=== PATIENT | female | born 1995 | race Caucasian/White ===

== ENCOUNTER 2025-06-29 12:24 | Inpatient (IN) | payer OTHER, SELFPAY ==
[2025-06-29] VITALS (15 sets, daily range): BP systolic 127–153; BP diastolic 70–91; PULSE 72–97; RESP 18–20; TEMP 36.6–37.1; O2SAT 97–98; BMI 43.7
[2025-06-29 13:30] LABS: Hematocrit 34.1 % (33.0-51.0); Hemoglobin* 11.5 gm/dL (12.0-16.0); Immature Granulocytes Pct Auto 1.8 %; Mean Corpuscular HGB Conc 34 gm/dL (32-36); Mean Corpuscular Hemoglobin 30 pg (26-34); Mean Corpuscular Volume 87 fL (80-100); RDW Coefficient of Variation % 13.9 % (11.5-15.5); Red Blood Count 3.90 m/uL (4.00-5.20); White Blood Count* 11.51 K/uL (4.50-11.00)
[2025-06-29 13:34] LABS: Immature Granulocytes Abs Auto 0.20 K/uL (0.00-0.30); Lymphocytes Absolute Auto 2.10 K/uL (0.90-2.90); Slide Review Reflex No
--- NOTE | 2025-06-29 19:50 | PM.OBHPLI ---
OB - H&P: HPI Labor/Induction History of Present Illness Date Seen: 06/29/25 Chief Complaint: The patient is a 30 year old 1 para 0 at 40+5 weeks gestation by LMP and confirmed with 1st trimester US, who presents for IOL for post-dates. Chief complaint: Induction : 1 Para: 0 Narrative: Shawnee Hubbard is a 30 year old at 40+5 weeks by LMP and confirmed with 1st trimester US here for IOL for post dates. has been uncomplicated. She reports no contractions, no LOF. Baby is active. This morning, cervix 1 cm external os, unable to reach internal os, she was started on vaginal cytotec this afternoon and is now 1.5/50/-4 per RN. Contractions are picking up on monitor, but patient denies feeling them. History of Present Dating criteria: based on LMP care: good care Ultrasounds: normal 1st trimester US and normal mid trimester US Abnormal ultrasound findings: EFW 3266g at 38 weeks (53%) Medical complications: none Labs Blood type: O (+) positive Rubella: immune RPR/VDLR: nonreactive GBS status: positive HBsAG: negative Review of Systems Status of ROS: Reports: 6 or more systems reviewed and unremarkable except as noted in History and below Meds Home Medications and Allergies Home Medications ?Medication ?Instructions ?Recorded ?Confirmed ?Type cetirizine 10 mg tablet (24Hour 10 mg PO DAILY PRN 06/29/25 06/29/25 History Allergy) dextroamphetamine-amphetamine ER 1 cap PO QAM 06/29/25 06/29/25 History 25 mg 24hr capsule,extend release vit no.95-ferrous 1 tab PO DAILY 06/29/25 06/29/25 History fumarate 28 mg-folic acid 800 mcg tablet () sertraline 50 mg tablet 50 mg PO DAILY 06/29/25 06/29/25 History Allergies Allergy/AdvReac Type Severity Reaction Status Date / Time No Known Drug Allergies Allergy Verified 06/29/25 13:08 OB - H&P: Exam Physical Exam: Vital signs: Temp Pulse Resp BP Pulse Ox 98 F 72 20 127/88 98 06/29/25 18:57 06/29/25 19:06 06/29/25 18:57 06/29/25 19:06 06/29/25 18:57 Constitutional: Constitutional: no acute distress Routine HEENT Exam: Eye: Present EOMI and normal appearance ENT: Present mucous membranes moist Routine Neck Exam: Neck: Present full ROM Routine Respiratory Exam: Respiratory: Present CTA bilaterally Routine Cardiovascular Exam: Cardiovascular: RRR Detailed Labor and Delivery Exam: Patient Gravid: yes Dilation (cm): 2 Effacement (%): 50 Cervix position: mid Consistency: soft Contraction intensity: Mild Fetus (Single): Station: -4 Amniotic Membrane Status: intact Heart Rate Baseline: 140 Monitor Accelerations: Present Monitor Decelerations: None Fire Alarm Dispatcher Variability: Moderate (6-25) Routine Extremities Exam: Extremities: Present pedal edema (+2) Routine Skin Exam: Present intact Routine Neurological Exam: Present alert, oriented X3 and CN II-XII intact OB - Results Labs Labs: Short CBC 06/29/25 Range/Units 12:52 WBC 11.51 H (4.50-11.00) K/uL Hgb 11.5 L (12.0-16.0) gm/dL Hct 34.1 (33.0-51.0) % Plt Count 249 (140-440) K/uL OB - Problem Based A/P Additional Plan (1) Post term over 40 weeks: Status: Acute Plan Patient is tolerating cytotec well and is having good cervical change. Will continue for a total of 5 doses if needed and then transition to pitocin in AM Abx for +GBS once pitocin started, patient tolerates cephalosporins. Epidural per patient request. Delivery/Labor/Induction Plan Plan: induction Induction method: per misoprostol protocol
[2025-06-29] MEDS: LACTATED RINGERS 1000 ML 1,000 ML 125 ML IV (22:20)
[2025-06-29] MEDS: CEFAZOLIN 2 GM in 0.9 % SODIUM CHLORIDE Mini-bag 100 ML IVPB (22:21)
[2025-06-29] MEDS: ONDANSETRON 2 MG/ML inj 4 MG IV (23:27)
[2025-06-30] VITALS (189 sets, daily range): BP systolic 75–154; BP diastolic 42–88; PULSE 67–128; RESP 16–20; TEMP 36.5–37.1; O2SAT 82–100
[2025-06-30] MEDS: LIDOCAINE 2% (PF) 5 ML VIAL EPIDURAL (01:38)
[2025-06-30] MEDS: ROPIVACAINE 0.2% 100 ml 100 ML 12 MG EPIDURAL ×3 (01:38→15:43)
--- NOTE | 2025-06-30 01:40 | PM.ANBPRC ---
PFSH PFSH Social History What is your current living situation?: I presently have a place to live Problems where you live: no known problems In the past 12 months, utilities in danger of being shut off: no In past 12 months, lack of transportation kept you from medical appts, meetings, work, or getting things needed for daily living: no In the past 12 mos, have been you worried that your food would run out before you had money to buy more?: never true In the past 12 mos, the food you bought just didn't last and you didn't have money to buy more?: never true Smoking Status: Never smoker How often does anyone, including family, friends and others, physically hurt you: never How often does anyone, including family, friends and others, insult or talk down to you: never How often does anyone, including family, friends and others, threaten you with harm: never How often does anyone, including family, friends and others, scream or curse at you: never Meds Home Medications and Allergies Home Medications ?Medication ?Instructions ?Recorded ?Confirmed ?Type cetirizine 10 mg tablet (24Hour 10 mg PO DAILY PRN 06/29/25 06/29/25 History Allergy) dextroamphetamine-amphetamine ER 1 cap PO QAM 06/29/25 06/29/25 History 25 mg 24hr capsule,extend release vit no.95-ferrous 1 tab PO DAILY 06/29/25 06/29/25 History fumarate 28 mg-folic acid 800 mcg tablet () sertraline 50 mg tablet 50 mg PO DAILY 06/29/25 06/29/25 History Allergies Allergy/AdvReac Type Severity Reaction Status Date / Time No Known Drug Allergies Allergy Verified 06/29/25 13:08 Results Labs Labs: Laboratory Results - last 24 hr 06/29/25 12:52 WBC 11.51 H RBC 3.90 L Hgb 11.5 L Hct 34.1 MCV 87 MCH 30 MCHC 34 RDW Coeff of [place] 13.9 Plt Count 249 Neut % (Auto) 71.1 Lymph % (Auto) 18.5 L Ballard % (Auto) 7.6 Eos % (Auto) 0.9 Baso % (Auto) 0.1 Neut # (Auto) 8.20 H Lymph # (Auto) 2.10 Ballard # (Auto) 0.90 Eos # (Auto) 0.10 Baso # (Auto) 0.00 Abs Immat Gran (auto) 0.20 Imm/Tot Granulo (auto) 1.8 Blood Type O Positive Antibody Screen NEGATIVE Vital Signs Vital Signs: Last Vital Signs Temp 97.7 F 06/30/25 00:21 Pulse 95 06/30/25 01:40 Resp 20 06/29/25 23:07 BP 113/69 06/30/25 01:40 Pulse Ox 98 06/30/25 01:36 Weight: 113.761 kg Height: 161.29 cm Anesthesia Procedures Epidural Insertion Patient Location: OB Start Time: :00 Stop Time: 01:45 Start Date: 06/30/25 Stop Date: 06/30/25 Reason for Block: primary anesthetic Patient Position: sitting Performed By: Velasquez Patel Preanesthetic Checklist: IV checked, risks and benefits discussed, surgical consent, monitors and equipment checked, pre-op evaluation, timeout performed and anesthesia consent Prep: chlorhexidine gluconate Monitoring: blood pressure monitoring, registered nurse cardiac, continuous pulse oximetry and heart rate Approach: midline Vertebral Space: lumbar (1-5) Needle Type: Tuohy needle Injection Technique: continuous catheter (catheter) Needle gauge: 17 Needle Length (cm): 10 cm Needle Insertion Depth (cm): 7 Catheter Gauge: 19 Catheter Type: multi-orifice Catheter at skin depth (cm): 12 Test Dose Result: negative and lidocaine 1.5% with epinephrine 1 to 200,000
[2025-06-30] MEDS: PHENYLEPHRINE 100 MCG/ML SYRINGE IVP ×4 (01:46→15:49)
[2025-06-30] MEDS: LACTATED RINGERS 1000 ML 1,000 ML IV (01:56)
[2025-06-30] MEDS: ePHEDrine sulfate 5 MG/ML inj 10 MG IVP (02:34)
--- NOTE | 2025-06-30 02:53 | PM.OBPNL ---
Subjective Date Seen: 06/30/25 Narrative: Shawnee is a 30 you at 40+6 weeks who presented yesterday afternoon for IOL for post-dates. She received 3 doses of cytotec and had SROM of clear fluid a 2140. Contractions then became stronger, ultimately she requred an epidural around 0130. Nursing had difficulty tracing FHTs during epidural, and maternal BP dropped after placement, prolonged decelerations into the 80s were seen and continued despite position changes. MD called to bedside, patient's BP had improved by arrival and FHTs reassuring. Patient is now resting comfortable. Objective Vital Signs: Last Vital Signs Temp 97.7 F 06/30/25 00:21 Pulse 106 H 06/30/25 02:48 Resp 20 06/29/25 23:07 BP 130/73 06/30/25 02:48 Pulse Ox 92 06/30/25 02:49 Pelvic Exam Dilation (cm): 4 Effacement (%): 100 Station: -2 Contractions Monitor mode: External Contraction intensity: Strong/Firm Assessment Assessment: induction ongoing Station: -2 Amniotic Membrane Status: SROM (clear) Status: Category ll Heart Rate Baseline: 140 Supervisor Blasting Variability: Moderate (6-25) Monitor Accelerations: Absent Monitor Decelerations: Variable Plan Plan: Patient comfortable with epidural and making cervical change, will continue expectant management. If contractions space out or lack of cervical change, will start pitocin. Continue antibiotics for + GBS.
[2025-06-30] MEDS: OXYTOCIN 30 unit/500 ML in NS 30 UNIT/500 ML BAG IVPB (05:23)
[2025-06-30] MEDS: CEFAZOLIN 1 GM in 0.9 % SODIUM CHLORIDE Mini-bag 100 ML IVPB ×2 (06:20→15:23)
[2025-06-30] MEDS: LACTATED RINGERS 1000 ML 1,000 ML 125 ML IV ×2 (09:23→13:56)
--- NOTE | 2025-06-30 09:37 | PM.OBPNL ---
Subjective Date Seen: 06/30/25 Narrative: Rita is a 30 yo G1 at 40+6 weeks here for IOL due to post dates. provider called urgently to bedside due to persistent deceleration to 70-80 unresponsive to position changes and pitocin turned off. By arrival, FHTs recovered and scalp electrode placed by in-house MD. Patient on hands and knees, tolerating this position well and feeling intermittent pressure with contractions. Per provider who placed FSE, patient has only an anterior rim of cervix, but may be positioned OP. Objective Vital Signs: Last Vital Signs Temp 98.5 F 06/30/25 06:37 Pulse 99 06/30/25 09:35 Resp 16 06/30/25 06:37 BP 124/72 06/30/25 09:35 Pulse Ox 100 06/30/25 09:11 Pelvic Exam Dilation (cm): 9 Effacement (%): 100 Station: -2 Contractions Monitor mode: External Contraction Frequency: 3-4 Contraction pattern: Regular Contraction intensity: Strong/Firm Pitocin Rate (mU/min): 0 Assessment Station: -2 Amniotic Membrane Status: SROM (clear) Status: Category ll Heart Rate Baseline: 140 Critical Power Install Technician Variability: Moderate (6-25) Monitor Accelerations: Present Monitor Decelerations: None Plan Plan: Pitocin off now, FHTs recovered, will try repositioning again and may need to restart pitocin if contractions space out during pushing.
--- NOTE | 2025-06-30 13:41 | PM.OBPNL ---
Subjective Date Seen: 06/30/25 Narrative: Shawnee is a 30 yo at 40+6 here for IOL. Patient is now complete and pushing, making slow progress. Epidural still working well. Objective Vital Signs: Last Vital Signs Temp 98.3 F 06/30/25 11:06 Pulse 100 06/30/25 13:35 Resp 16 06/30/25 11:06 BP 137/77 06/30/25 13:35 Pulse Ox 98 06/30/25 13:23 Pelvic Exam Dilation (cm): 10 Effacement (%): 100 Station: -2 Contractions Monitor mode: External Contraction pattern: Regular Contraction intensity: Strong/Firm Pitocin Rate (mU/min): 3 Assessment Assessment: active labor Station: -2 Amniotic Membrane Status: SROM (clear) Status: Category ll Heart Rate Baseline: 130 Snf Variability: Moderate (6-25) Monitor Accelerations: Present Monitor Decelerations: Variable Plan Plan: Continue current plan.
[2025-06-30] MEDS: ONDANSETRON 2 MG/ML inj 4 MG IV ×2 (14:04→18:59)
--- NOTE | 2025-06-30 16:01 | PM.OBCN1 ---
OB - CN: HPI Date of Consult Time Seen by Provider: 16:02 Date Seen: 06/30/25 Consult date: 06/30/25 Requesting Physician: Marisa Mitchell MD Primary Care Provider: Marisa Mitchell MD Consult Narrative Reason for consult: arrest of labor and malpresentation Narrative: Shawnee is a 30 year old G 1 P 0 at 41 and 6/7 weeks gestation that was admitted to the Center on 06/29/25 for cervical ripening followed by induction of labor. She received 3 doses of Cytotec then had spontaneous rupture of membranes and was started on Pitocin on the morning of 06/30/2025. She progressed to complete dilation at at approximately 1:05 p.m.. She started pushing at approximately 1:15 p.m. she has had good effort with pushing but has become exhausted. I was asked to evaluate the patient for a possible vacuum assisted vaginal delivery versus primary for arrest of descent. Please see Dr. Justice hers admission history and physical note for complete history. History of Present Dating criteria: based on LMP care: good care Ultrasounds: normal 1st trimester US and normal mid trimester US History History 1 Elective abortions Para 0 Spontaneous abortions Hx # Term Pregnancies Ectopic pregnancies Hx # Pregnancies Multiple births Number of Living Children 0 Labs Blood type: O (+) positive Rubella: immune RPR/VDLR: nonreactive GBS status: positive HBsAG: negative OB Labs: Lab Assessment Start: 06/29/25 12:39 Freq: ONCE Status: Complete Protocol: PC.OBGBS Activity Type Activity Date Activity User E-sign Co-sign Detail Recorded Client Recorded Date Recorded By Document 06/29/25 12:39 BRM No Response 06/29/25 13:05 BRM 06/29/25 12:39 Lab Assessment GBS Status positive GBS Additional Criteria None Susceptibility Studies Available? Clindamycin Susceptible GBS Treatment Required OK Are Labs Available Yes Maternal Blood Type O Maternal RH Factor Positive Evaluate Maternal Rubella Immune Status Immune Hepatitis B Surface Antigen Negative Maternal HIV Status Negative Maternal Syphillis (RPR) Status Negative PFSH PFSH Surgical History (Updated 06/30/25 @ 16:08 by Krystal Kern MD) Status post primary low transverse section (06/30/25) ?Z98.891 - History of uterine scar from previous surgery (ICD-10) Social History What is your current living situation?: I presently have a place to live Problems where you live: no known problems In the past 12 months, utilities in danger of being shut off: no In past 12 months, lack of transportation kept you from medical appts, meetings, work, or getting things needed for daily living: no In the past 12 mos, have been you worried that your food would run out before you had money to buy more?: never true In the past 12 mos, the food you bought just didn't last and you didn't have money to buy more?: never true Smoking Status: Never smoker How often does anyone, including family, friends and others, physically hurt you: never How often does anyone, including family, friends and others, insult or talk down to you: never How often does anyone, including family, friends and others, threaten you with harm: never How often does anyone, including family, friends and others, scream or curse at you: never Meds Home Medications and Allergies Home Medications ?Medication ?Instructions ?Recorded ?Confirmed ?Type cetirizine 10 mg tablet (24Hour 10 mg PO DAILY PRN 06/29/25 06/29/25 History Allergy) dextroamphetamine-amphetamine ER 1 cap PO QAM 06/29/25 06/29/25 History 25 mg 24hr capsule,extend release vit no.95-ferrous 1 tab PO DAILY 06/29/25 06/29/25 History fumarate 28 mg-folic acid 800 mcg tablet () sertraline 50 mg tablet 50 mg PO DAILY 06/29/25 06/29/25 History Allergies Allergy/AdvReac Type Severity Reaction Status Date / Time No Known Drug Allergies Allergy Verified 06/29/25 13:08 OB - H&P: Exam Physical Exam: Vital signs: Temp Pulse Resp BP Pulse Ox 98.3 F 100 16 128/70 100 06/30/25 15:35 06/30/25 15:50 06/30/25 15:35 06/30/25 15:50 06/30/25 15:07 Narrative: General: Pleasant, , fatigued woman in no acute distress. Vital signs: Please see the patient's electronic medical record. scalp electrode: Baseline: 110s, moderate variability intermittent variable/early decelerations with contractions/pushing. Culver: Q 4-6 minute SVE: Complete, caput is +2 to +3, one suture is palpable and feels c/w LOT presentation w/vertex at 0 to +1 station OB - CN: A/P Assessment and Plan (1) Post term over 40 weeks: Status: Acute (2) Arrest of descent, delivered, current hospitalization: Status: Acute Assessment and Plan: 1. Arrest of descent, suspect L OT presentation. 2. Recommended primary low-transverse section. 3. Consent form for reviewed and signed. The patient's questions were answered. 4. Dr. Mitchell is aware and she will be the pediatric physician for the baby. (3) Status post primary low transverse section: Problem details: Female Status: Acute Total Time Spent Total time spent: 40 minutes
[2025-06-30] MEDS: AZITHROMYCIN 500 MG in 0.9 % SODIUM CHLORIDE 250 ml 250 ML 255 MG IVPB (16:02)
--- NOTE | 2025-06-30 16:02 | PM.OBPNL ---
Subjective Date Seen: 06/30/25 Narrative: Shawnee is a 30 yo at 40+6 weeks who presented yesterday afternoon for IOL for post-dates. She progressed to complete at 1305, and was pushing effectively however no longer making progress. Patient is exhausted. OB consulted to determine if vaccuum assisted delivery would be feasible or if primary is recommended for failure to descend. Objective Vital Signs: Last Vital Signs Temp 98.3 F 06/30/25 15:35 Pulse 100 06/30/25 15:50 Resp 16 06/30/25 15:35 BP 128/70 06/30/25 15:50 Pulse Ox 100 06/30/25 15:07 Pelvic Exam Dilation (cm): 10 Effacement (%): 100 Station: +1 Contractions Monitor mode: External Contraction pattern: Regular Contraction intensity: Strong/Firm Pitocin Rate (mU/min): 3 Assessment Assessment: active labor Station: -2 Amniotic Membrane Status: SROM Status: Category ll Heart Rate Baseline: 125 High School Music Director Variability: Moderate (6-25) Monitor Accelerations: Absent Monitor Decelerations: Variable Plan Plan: inspector and clipper consult. Given lack of descent with effective pushing and suspected transverse positioning, proceeding with .
--- NOTE | 2025-06-30 17:31 | SUR.OPER ---
surgeon declines sending placenta at this time; witnessed per security systems administrator and animal ride attendant
[2025-06-30] MEDS: TRANEXAMIC ACID 100 MG/ML INJ 1000 MG IV (17:40)
--- NOTE | 2025-06-30 18:09 | SUR.OPER ---
surgeon confirms NOT sending placenta; witnessed by occupational health nurse supervisor
--- NOTE | 2025-06-30 18:38 | P.PCN_ITS ---
Procedure Note Time Seen by Provider: 18:38 Date Seen: 06/30/25 Date of procedure: 06/30/25 Will [facility] bill your pro fee for this procedure?: Yes Procedure: Preoperative diagnosis: Shawnee is a 30-year-old 1 para 0 at 40 and 6/7 weeks, arrest of descent, suspected occiput transverse presentation Postoperative diagnosis: Same, LOT presentation, hemorrhage due to uterine atony Procedure: Primary low-transverse section Anesthesia: Epidural Surgeon: Krystal Kern MD Laundromat Worker: Not applicable Quantitative blood loss: 1495 mL IV Fluid: 1500 mL UOP: 150 mL, clear urine at the end of the procedure Specimen: None Drain(s): Almaguer to gravity, Bakri uterine tamponade device with 200mL to gravity Findings: A live female was delivered from the LOT position at 5:36 p.m. Apgars were 8 at 1 min and 9 at 5 min, respectively. weight: 8 lb 4 oz. Nuchal cord(s): No. The placenta was delivered spontaneously and complete at 5:38 p.m.. Amniotic fluid: Light meconium-stained. Normal uterus, fallopian tubes and ovaries were noted. Other findings: Significant uterine atony after delivery of the placenta. Procedure: Shawnee was taken to the OR where epidural anesthetic was found be adequate. A Almaguer catheter was placed. The patient was then placed in the dorsal supine position with a leftward tilt and a Traxi, pannus retractor was applied. She was then prepped and draped in a normal sterile manner. A Pfannenstiel skin incision was made and carried through sharply to the underlying layer of fascia. Fascia was incised in the midline and this incision carried laterally with Jewell scissors. The superior aspect of fascial incision was grasped with Gonzales clamps, tented up, and the rectus muscles dissected off with a combination of blunt and sharp dissection. The inferior aspect of the fascial incision was grasped with Gonzales clamps, tented up and again the rectus muscles dissected off with a combination of blunt and sharp dissection. The rectus muscles were in the midline. The peritoneum was entered bluntly. This opening was extended bluntly. An Robin-O self-retaining retractor was placed. A bladder flap was not created. Uterus was incised in a low transverse manner in the midline. This incision carried laterally with blunt pressure on the inferior and superior aspects of the uterine incision. The amniotic sac was ruptured. The infant's head and body was delivered atraumatically. The infant was shown to the patient and her support person and then handed to waiting pediatric and nursing staff. The placenta was delivered spontaneously. The uterus was cleared of clots and debris. There was significant uterine atony after delivery of the placenta. Patient received 40 units Pitocin in 1 L IV fluid wide open, Methergine 0.2 mg IM x1 and TXA 1 g IV then a Bakri balloon was placed with 300 mL of saline but was noted to be pushed out of the uterus so a new Bakri balloon was placed with 200 mL of saline which worked well for uterine tamponade. The uterine incision was re-approximated with the uterus in vivo. The 1st layer using 0-Vicryl in a running, locked manner. The 2nd layer using 0-Monocryl in a running, vertical, imbricating layer. Additional sutures needed for hemostasis: No. Excellent hemostasis was verified. The Robin retractor was removed. The peritoneum was reapproximated using 2-0 Vicryl in a running manner. The rectus muscles were not reapproximated. The rectus muscles were then closely inspected to verify hemostasis. Hemostasis was obtained with bipolar cautery. The fascia was then re-approximated using 0-Maxon loop in a running manner. The subcutaneous tissue was then irrigated with saline and hemostasis obtained with bipolar cautery. The subcutaneous tissue was re-approximated using 3-0 plain gut in a running manner. The skin was reapproximated using 4-0 Monocryl in a running subcuticular manner. A silver-containing, Mepiplex dressing was applied. The patient tolerated this procedure well. Sponge, lap and instrument counts were correct x2 active to the procedure. Patient was taken to the recovery area in stable condition. The patient received 3g of IV Ancef and 500mg of IV azithromycin prior to skin incision. Anesthesia: regional Estimated blood loss (mL): 1,495 IV fluids (mL): 1,500 Urine output (mL): 150 Pathology: none sent Condition: stable Disposition: floor
--- NOTE | 2025-06-30 18:57 | P.ANES_ITS ---
Anesthesia Charges Start Date/Time Anesthesia Start Date: 06/30/25 Anesthesia Start Time: 17:04 Stop Date/Time Anesthesia Stop Date: 06/30/25 Anesthesia Stop Time: 18:48 Summary Emergency: REGIONAL PROPERTY MANAGER Coding CPT Codes CPT Codes: ANES/ANALG CS DELIVER ADD-ON - 44522 ([id number]) P3 - PATIENT W/SEVERE SYS DISEASE, QK - POWER SYSTEM DISPATCHER 2-4 CNCRNT ANES PROC, QX - REGIONAL PROPERTY MANAGER SVC W/ MD MED DIRECTION Additional Codes: Summary - Emergency: REGIONAL PROPERTY MANAGER ([id number])
--- NOTE | 2025-06-30 18:57 | W.ANESCHARGE ---
Anesthesia Charges Start Date/Time Anesthesia Start Date: 06/30/25 Anesthesia Start Time: 17:04 Stop Date/Time Anesthesia Stop Date: 06/30/25 Anesthesia Stop Time: 18:48 Summary Emergency: UKRAINIAN FOLK ARTS INSTRUCTOR Coding CPT Codes CPT Codes: ANES/ANALG CS DELIVER ADD-ON - 85738 ([id number]) P3 - PATIENT W/SEVERE SYS DISEASE, QK - SOAP SLABBER 2-4 CNCRNT ANES PROC, QX - UKRAINIAN FOLK ARTS INSTRUCTOR SVC W/ MD MED DIRECTION Additional Codes: Summary - Emergency: UKRAINIAN FOLK ARTS INSTRUCTOR ([id number])
--- NOTE | 2025-06-30 19:02 | P.NB_ITS ---
Nerve Block Nerve Block Time Seen by Provider: 18:42 Date Seen: 06/30/25 Type of block requested by surgeon for post-operative analgesia: TAP Side: bilateral Time out performed: Yes Verification of patient name: Yes Verification of date of : Yes Site marking: site marked Name of person performing procedure: mantyl Continuous monitoring Was continuous monitoring of O2 sat, B/P, laboratory monitor, recorded every 15 minutes?: Yes Procedure Checklist: sterile prep and needles Ultrasound guided. Images saved: Yes Medications given in 5ml increments after negative aspiration: Marcaine %: 0.25 mL: 30 and Exparel mL: 10 Patient tolerated procedure well: Yes Block Charges Block Charge (with Pro Fee): TAP Bilateral Use of Ultrasound Machine for Block: Yes- US Guidance/pain block
[2025-06-30] MEDS: ACETAMINOPHEN 500 MG TABLET 1000 MG PO (21:05)
[2025-07-01] MEDS: ENOXAPARIN 40 MG/0.4 ML INJ SUBCUT (00:26)
[2025-07-01] MEDS: ACETAMINOPHEN 500 MG TABLET 1000 MG PO ×4 (03:29→21:42)
[2025-07-01 03:35] VITALS: BP 118/73; PULSE 86; RESP 16; TEMP 36.6; O2SAT 95
[2025-07-01 06:23] LABS: Alanine Aminotransferase* 25 U/L (4-35); Aspartate Amino Transferase* 55 U/L (12-35); Creatinine* 1.0 mg/dL (0.5-1.5); Est. Creatinine Clearance* 67.43; Estimated Glomerular Filt Rate 77 ml/min
[2025-07-01 06:26] LABS: Hematocrit 27.5 % (33.0-51.0); Hemoglobin* 9.0 gm/dL (12.0-16.0); Mean Corpuscular HGB Conc 33 gm/dL (32-36); Mean Corpuscular Hemoglobin 29 pg (26-34); Mean Corpuscular Volume 89 fL (80-100); Red Blood Count 3.08 m/uL (4.00-5.20); White Blood Count* 23.09 K/uL (4.50-11.00)
[2025-07-01 06:27] LABS: Slide Review Reflex No
--- NOTE | 2025-07-01 07:22 | PM.OBPNVD1 ---
OB - PN: Obj Exam Physical Exam: Vital signs: Temp Pulse Resp BP Pulse Ox O2 Del Method 97.9 F 86 16 118/73 95 Room Air 07/01/25 03:35 07/01/25 03:35 07/01/25 03:35 07/01/25 03:35 07/01/25 03:35 07/01/25 03:35 OB - PN: Obj Data Labs Labs: Laboratory Results - last 24 hr 07/01/25 05:50 WBC 23.09 H RBC 3.08 L Hgb 9.0 L Hct 27.5 L MCV 89 MCH 29 MCHC 33 Plt Count 224 Creatinine 1.0 Estimated Creat Clear 67.43 Estimated GFR 77 AST 55 H ALT 25 OB - PN: A/P Delivery Assessment and Plan (1) Post term over 40 weeks: Status: Acute (2) Arrest of descent, delivered, current hospitalization: Status: Acute (3) Status post primary low transverse section: Problem details: Female, Emerly, Apgars 8/9, 8#4oz. Status: Acute
--- NOTE | 2025-07-01 08:02 | P.OBPN_ITS ---
OB - PN:Subj Subjective Time Seen by Provider: 07:30 Date Seen: 07/01/25 Patient comments OB post-: tolerating diet status: and doing well [place] feeding status: exclusively Narrative: Sitting in bed comfortable with ice pack to abdomen. Holding and bonding with baby. Says is going well and daughter has been able to latch. Nurs e helped to stand at edge of bed this morning to change linens and remove bakri. No bleeding in pad since bakri removed. Garsia catheter still in place. No passing gas or bowel movement yet. Pain is controlled with Toradol, Tylenol, Oxycodone, and ice. Did not sleep last night. Feeling tired but in high spirits. Partner at bedside. Was able to eat some mashed potatoes last night and has appettite for breakfast now. LESLI Travis OB - PN: Obj Exam Physical Exam: Vital signs: Temp Pulse Resp BP Pulse Ox O2 Del Method 97.9 F 86 16 118/73 95 Room Air 07/01/25 03:35 07/01/25 03:35 07/01/25 03:35 07/01/25 03:35 07/01/25 03:35 07/01/25 03:35 Narrative: Constitutional: in no acute distress, normal affect Breasts: declines physical exam. States no problems, soreness, nipple pain Cardiovascular: heart rate and rhythm regular, no murmur. +2 pitting edema in BLE. Blood pressures WNL since Respiratory: lung sounds clear, regular respiratory effort Abdomen: soft, tender, uterus is firm and at umbilicus, appropriate for this stage of recovery Genitourinary: garsia catheter draining clear yellow urine Incision: low transverse incision covered with clean, dry, intact, surgical dressing. Ice applied Neuro: full sensation in all extremities Psych: alert and oriented Mood: appropriate ? OB - PN: Obj Data Labs Labs: Laboratory Results - last 24 hr 07/01/25 05:50 WBC 23.09 H RBC 3.08 L Hgb 9.0 L Hct 27.5 L MCV 89 MCH 29 MCHC 33 Plt Count 224 Creatinine 1.0 Estimated Creat Clear 67.43 Estimated GFR 77 AST 55 H ALT 25 OB - PN: A/P Delivery Assessment and Plan (1) normal course: Status: Acute (2) Arrest of descent, delivered, current hospitalization: Status: Acute (3) Status post primary low transverse section: Problem details: Female, Emerly, Apgars 8/9, 8#4oz. Status: Acute (4) hemorrhage: Problem details: QBL 1495mL Status: Acute (5) Gestational hypertension: Status: Acute Plan Day 1 section Continue every 2-3 hours and on demand. Use support. Abdominal binder Rest, hydrate Remove catheter when able to ambulate to bathroom Iron supplementation Stool softener Continue pain med regimen to be able to move and rest and care for self and baby IYuliya APRN, CNM, was present for visit and have reviewed and agree with documentation by the Certified Nurse Midwifery Student.? Plan day: 1 Plan: routine care
[2025-07-01] MEDS: DOCUSATE SODIUM 100 MG CAPSULE PO (08:23)
[2025-07-01] MEDS: FERROUS SULFATE 325 MG TABLET PO (08:24)
[2025-07-01] MEDS: SERTRALINE 50 MG TABLET PO (08:24)
[2025-07-01 08:27] VITALS: BP 119/78; PULSE 83; RESP 12; TEMP 36.4; O2SAT 98
[2025-07-01 12:34] VITALS: BP 128/84; PULSE 88; RESP 12; TEMP 36.4; O2SAT 97
[2025-07-01 12:48] LABS: Hematocrit 26.6 % (33.0-51.0); Hemoglobin* 8.8 gm/dL (12.0-16.0); Mean Corpuscular HGB Conc 33 gm/dL (32-36); Mean Corpuscular Hemoglobin 30 pg (26-34); Mean Corpuscular Volume 90 fL (80-100); Red Blood Count 2.97 m/uL (4.00-5.20); White Blood Count* 21.22 K/uL (4.50-11.00)
[2025-07-01 12:59] LABS: Slide Review Reflex No
[2025-07-01 13:14] LABS: Blood Urea Nitrogen* 20 mg/dL (5-24); Creatinine* 1.1 mg/dL (0.5-1.5); Est. Creatinine Clearance* 61.30; Estimated Glomerular Filt Rate 69 ml/min
[2025-07-01 13:15] LABS: Alanine Aminotransferase* 26 U/L (4-35); Aspartate Amino Transferase* 63 U/L (12-35)
[2025-07-01 15:47] VITALS: BP 116/75; PULSE 88; RESP 16; TEMP 36.5; O2SAT 97
[2025-07-01 17:47] LABS: Hematocrit 25.2 % (33.0-51.0); Hemoglobin* 8.3 gm/dL (12.0-16.0); Mean Corpuscular HGB Conc 33 gm/dL (32-36); Mean Corpuscular Hemoglobin 30 pg (26-34); Mean Corpuscular Volume 90 fL (80-100); Red Blood Count 2.79 m/uL (4.00-5.20); White Blood Count* 19.29 K/uL (4.50-11.00)
[2025-07-01 17:48] LABS: Slide Review Reflex No
[2025-07-01 18:00] LABS: Blood Urea Nitrogen* 22 mg/dL (5-24); Creatinine* 1.1 mg/dL (0.5-1.5); Est. Creatinine Clearance* 61.30; Estimated Glomerular Filt Rate 69 ml/min
[2025-07-01 18:01] LABS: Alanine Aminotransferase* 29 U/L (4-35); Aspartate Amino Transferase* 66 U/L (12-35)
[2025-07-01 19:44] VITALS: BP 110/70; PULSE 87; RESP 18; TEMP 36.7; O2SAT 96
[2025-07-02] VITALS (17 sets, daily range): BP systolic 112–138; BP diastolic 74–84; PULSE 75–98; RESP 16–22; TEMP 36.3–36.8; O2SAT 97–99
[2025-07-02] MEDS: ENOXAPARIN 40 MG/0.4 ML INJ SUBCUT (00:25)
[2025-07-02 00:40] LABS: Hematocrit 23.2 % (33.0-51.0); Mean Corpuscular HGB Conc 33 gm/dL (32-36); Mean Corpuscular Hemoglobin 30 pg (26-34); Mean Corpuscular Volume 90 fL (80-100); Red Blood Count 2.58 m/uL (4.00-5.20); White Blood Count* 16.45 K/uL (4.50-11.00)
[2025-07-02 00:42] LABS: Hemoglobin* 7.7 gm/dL (12.0-16.0); Slide Review Reflex No
[2025-07-02 00:54] LABS: Alanine Aminotransferase* 26 U/L (4-35); Aspartate Amino Transferase* 63 U/L (12-35); Blood Urea Nitrogen* 20 mg/dL (5-24); Creatinine* 0.9 mg/dL (0.5-1.5); Est. Creatinine Clearance* 74.92; Estimated Glomerular Filt Rate 88 ml/min
[2025-07-02] MEDS: ACETAMINOPHEN 500 MG TABLET 1000 MG PO ×3 (04:40→20:45)
[2025-07-02 07:04] LABS: Hematocrit 23.1 % (33.0-51.0); Mean Corpuscular HGB Conc 33 gm/dL (32-36); Mean Corpuscular Hemoglobin 29 pg (26-34); Mean Corpuscular Volume 91 fL (80-100); Red Blood Count 2.55 m/uL (4.00-5.20); White Blood Count* 16.52 K/uL (4.50-11.00)
[2025-07-02 07:06] LABS: Hemoglobin* 7.5 gm/dL (12.0-16.0); Slide Review Reflex No
[2025-07-02 07:22] LABS: Blood Urea Nitrogen* 19 mg/dL (5-24); Creatinine* 0.8 mg/dL (0.5-1.5); Est. Creatinine Clearance* 84.29; Estimated Glomerular Filt Rate 101 ml/min
[2025-07-02 07:23] LABS: Alanine Aminotransferase* 27 U/L (4-35); Aspartate Amino Transferase* 72 U/L (12-35)
[2025-07-02] MEDS: LACTATED RINGERS 1000 ML 1,000 ML 50 ML IV (08:13)
[2025-07-02] MEDS: MAGNESIUM IV 4 GM/100 ML PIGGYBACK IVPB (08:14)
--- NOTE | 2025-07-02 08:14 | P.OBPN_ITS ---
OB - PN:Subj Subjective Time Seen by Provider: 07:45 Date Seen: 07/02/25 Narrative: hSawnee is a 30yo seen on postop day 2 from primary for arrest of descent complicated by hemorrhage (atony, status post uterotonics and Bakri). has otherwise been complicated by gestational hypertension, where serial labs were being performed due to transaminitis. Patient has had acute blood loss anemia in the postoperative phase, asymptomatic with reassuring vital signs. I assumed care of Shawnee at 0700 and reviewed her chart. On EMR review, there was severe range Cr on 07/01 with new severe range transaminitis (AST 72) this morning. As such, I recommended initiation of magnesium sulfate for preeclampsia with severe features (severe range transaminitis, previous severe range creatinine). Recommend we start with a renal dosing regimen, of a 4 g bolus followed by 1 gram/hour continuous infusion. Plan serial preeclampsia labs q.6h with Mag levels. If subtherapeutic with a stable creatinine, would consider increasing to the standard rate of 2 grams/hour. I did share this of date with Shawnee who expressed understanding and is agreeable to plan. She notes she is feeling well this morning. She notes her pain is overall well controlled, on ibuprofen, Tylenol and oxycodone as needed. She has been up to ambulate without difficulty. Specifically denies any dizziness/lightheadedness, chest pain or dyspnea. She notes her energy overall is appropriate. She is tolerating p.o. intake without nausea or vomiting. Voids without difficulty, passing flatus. Lochia is described as minimal. Endorses some lower extremity edema, improving with time. No calf erythema/tenderness. Emotionally, she is doing well and bonding with baby. OB - PN: Obj Exam Physical Exam: Vital signs: Temp Pulse Resp BP Pulse Ox O2 Del Method 97.4 F L 75 19 127/81 97 Room Air 07/02/25 04:41 07/02/25 04:41 07/02/25 04:41 07/02/25 04:41 07/02/25 04:41 07/02/25 04:41 Narrative: Physical exam: General: No acute distress Psych: Alert and oriented x3, full affect Heart: Regular rate and rhythm, no murmur rub or gallop Lungs: Clear to auscultation bilaterally Abdomen: Soft, nondistended. Slight tenderness to palpation in the lower quadrant, consistent with postoperative state. Fundus palpates firm at 1 below umbilicus. Incision is covered by silver dressing. Extremities: 1+ pitting edema bilaterally. No calf erythema or tenderness. OB - PN: Obj Data Labs Labs: Laboratory Results - last 24 hr 06/29/25 07/01/25 07/01/25 12:52 12:38 17:40 WBC 21.22 H 19.29 H RBC 2.97 L 2.79 L Hgb 8.8 L 8.3 L Hct 26.6 L 25.2 L MCV 90 90 MCH 30 30 MCHC 33 33 Plt Count 218 217 BUN 20 22 Creatinine 1.1 1.1 Estimated Creat Clear 61.30 61.30 Estimated GFR 69 69 AST 63 H 66 H ALT 26 29 RPR Screen Non Reactive 07/02/25 07/02/25 00:22 06:30 WBC 16.45 H 16.52 H RBC 2.58 L 2.55 L Hgb 7.7 L* 7.5 L* Hct 23.2 L 23.1 L MCV 90 91 MCH 30 29 MCHC 33 33 Plt Count 210 212 BUN 20 19 Creatinine 0.9 0.8 Estimated Creat Clear 74.92 84.29 Estimated GFR 88 101 AST 63 H 72 H ALT 26 27 RPR Screen OB - PN: A/P Delivery Assessment and Plan (1) normal course: Status: Acute (2) Arrest of descent, delivered, current hospitalization: Status: Acute (3) Status post primary low transverse section: Problem details: Female, Emerly, Apgars 8/9, 8#4oz. Status: Acute (4) hemorrhage: Problem details: QBL 1495mL Status: Acute (5) Gestational hypertension: Status: Inactive (6) Preeclampsia, severe: Problem details: By Cr and AST Status: Acute Plan Shawnee is a 30yo seen on postop day 2 from primary for arrest of descent complicated by hemorrhage (atony, status post uterotonics and Bakri). has otherwise been complicated by gestational hyperten yovanny, where serial labs were being performed due to transaminitis. Patient has had acute blood loss anemia in the postoperative phase, asymptomatic with reassuring vital signs. PreE with SF: - Shawnee meets criteria for preeclampsia with severe features, given severe range CROEEN yesterday and severe range transaminitis today. - Recommend magnesium sulfate initiation for seizure prophylaxis times 24 hours. Plan to administer at 4 grams/hour loading dose, followed by 1 grams/hour maintenance dose given recent COREEN. - Plan to obtain preeclampsia labs q.6h including Mag level. Would consider increasing maintenance dose to 2 grams/hour pending check level and repeat creatinine. - Diligent blood pressure monitoring ongoing. Patient has been normotensive with no medications in the last 24 hours - strict I&O assessment Acute blood loss anemia: - AM hemoglobin of 7.5, from 7.7 at 0000. Patient is feeling well, hemodynamically stable. She is meeting all appropriate postoperative milestones and is asymptomatic with no difficulty with ambulation, dizziness/lightheadedness, chest pain or dyspnea. - Plan to continue to follow hemoglobin on per routine preeclampsia labs. If she were to become symptomatic, demonstrated change in her vital signs or with hemoglobin <7 would recommend transfusion. - Diligent monitoring of VS, lochia and abdominal exam. All reassuring at this time. Continue routine care and lactating support. Dispo: Likely inpatient for 2 note more night given progression to preeclampsia with severe features and magnesium sulfate Plan Plan: routine care
[2025-07-02] MEDS: MAGNESIUM Infusion 40 GM/1,000 ML IV.SOLN IVPB ×2 (08:48→19:28)
[2025-07-02] MEDS: IBUPROFEN 600 MG TABLET PO ×2 (09:22→17:54)
[2025-07-02] MEDS: SERTRALINE 50 MG TABLET PO (09:22)
[2025-07-02 12:50] LABS: Hematocrit 24.9 % (33.0-51.0); Hemoglobin* 8.1 gm/dL (12.0-16.0); Mean Corpuscular HGB Conc 33 gm/dL (32-36); Mean Corpuscular Hemoglobin 29 pg (26-34); Mean Corpuscular Volume 90 fL (80-100); Red Blood Count 2.76 m/uL (4.00-5.20); White Blood Count* 15.72 K/uL (4.50-11.00)
[2025-07-02 13:00] LABS: Slide Review Reflex No
[2025-07-02 13:08] LABS: Alanine Aminotransferase* 30 U/L (4-35); Aspartate Amino Transferase* 69 U/L (12-35); Blood Urea Nitrogen* 15 mg/dL (5-24); Creatinine* 0.8 mg/dL (0.5-1.5); Est. Creatinine Clearance* 84.29; Estimated Glomerular Filt Rate 101 ml/min
[2025-07-02] MEDS: CETIRIZINE HCL 10 MG TABLET PO (13:51)
[2025-07-02] MEDS: FERROUS SULFATE 325 MG TABLET PO (14:33)
[2025-07-02 18:54] LABS: Hematocrit 24.9 % (33.0-51.0); Hemoglobin* 8.2 gm/dL (12.0-16.0); Mean Corpuscular HGB Conc 33 gm/dL (32-36); Mean Corpuscular Hemoglobin 30 pg (26-34); Mean Corpuscular Volume 90 fL (80-100); Red Blood Count 2.76 m/uL (4.00-5.20); White Blood Count* 14.92 K/uL (4.50-11.00)
[2025-07-02 19:07] LABS: Slide Review Reflex No
[2025-07-02 19:13] LABS: Alanine Aminotransferase* 31 U/L (4-35); Aspartate Amino Transferase* 64 U/L (12-35); Blood Urea Nitrogen* 14 mg/dL (5-24); Creatinine* 0.7 mg/dL (0.5-1.5); Est. Creatinine Clearance* 96.33; Estimated Glomerular Filt Rate 119 ml/min
[2025-07-03] VITALS (8 sets, daily range): BP systolic 114–133; BP diastolic 65–86; PULSE 87–97; RESP 16–22; TEMP 36.6–36.8; O2SAT 95–98
[2025-07-03 00:41] LABS: Hematocrit 23.7 % (33.0-51.0); Mean Corpuscular HGB Conc 33 gm/dL (32-36); Mean Corpuscular Hemoglobin 30 pg (26-34); Mean Corpuscular Volume 90 fL (80-100); Red Blood Count 2.63 m/uL (4.00-5.20); White Blood Count* 14.64 K/uL (4.50-11.00)
[2025-07-03 00:58] LABS: Alanine Aminotransferase* 30 U/L (4-35); Aspartate Amino Transferase* 61 U/L (12-35); Blood Urea Nitrogen* 12 mg/dL (5-24); Creatinine* 0.7 mg/dL (0.5-1.5); Est. Creatinine Clearance* 96.33; Estimated Glomerular Filt Rate 119 ml/min
[2025-07-03 01:20] LABS: Hemoglobin* 7.8 gm/dL (12.0-16.0); Slide Review Reflex No
[2025-07-03] MEDS: LACTATED RINGERS 1000 ML 1,000 ML 50 ML IV (03:18)
[2025-07-03] MEDS: IBUPROFEN 600 MG TABLET PO ×3 (03:20→16:33)
[2025-07-03] MEDS: ENOXAPARIN 40 MG/0.4 ML INJ SUBCUT ×2 (03:21→22:35)
[2025-07-03] MEDS: MAGNESIUM Infusion 40 GM/1,000 ML IV.SOLN IVPB (06:41)
[2025-07-03 07:30] LABS: Hematocrit 24.0 % (33.0-51.0); Mean Corpuscular HGB Conc 33 gm/dL (32-36); Mean Corpuscular Hemoglobin 29 pg (26-34); Mean Corpuscular Volume 90 fL (80-100); Red Blood Count 2.67 m/uL (4.00-5.20); White Blood Count* 14.63 K/uL (4.50-11.00)
[2025-07-03 07:35] LABS: Hemoglobin* 7.8 gm/dL (12.0-16.0); Slide Review Reflex No
--- NOTE | 2025-07-03 07:45 | P.OBPN_ITS ---
OB - PN:Subj Subjective Date Seen: 07/03/25 Narrative: Shawnee is a 30yo seen on POD3 from primary for arrest of descent complicated by hemorrhage (atony, status post uterotonics and Bakri). has otherwise been complicated by gestational hypertension, where serial labs were being performed due to transaminitis. Patient has had acute blood loss anemia in the postoperative phase, asymptomatic with reassuring vital signs. On POD2 patient was diagnosed with preeclampsia with severe features given new severe range transaminitis (AST 72) and COREEN noted on POD1 (Cr 1.1 x2). She received 24 hours of magnesium sulfate, initially renal-dosing (4g load 1g/hr maintenance) but this was increased to standard 2g/hr continuous infusion after her first set of labs demonstrated stable Cr and subtherapeutic magnesium. Magnesium was discontinued at 0815 this morning. Serial preeclampsia labs were obtained while on magnesium, where platelets/creatinine/ALT remained normal and AST was noted to downtrend. She does endorse a very slight headache (3/10, impr oves with Tylenol/ibuprofen) but no vision changes or right upper quadrant pain. Patient has continued to have minimal ongoing lochia. Hemoglobin has been stable ranging from 7.8-8.1 across labs in the last 24 hours. Vital signs are entirely within normal limits. Robust urine output noted with of 2100mL in last 12 hours. She is receiving lovenox 40mg daily. Shawnee continues to feel well this morning. Pain is adequately controlled, on ibuprofen, Tylenol and oxycodone as needed. She continues to ambulate without difficulty. Specifically denies any dizziness/lightheadedness, chest pain or dyspnea. Appropriate fatigue for state. She is tolerating p.o. intake without nausea or vomiting. Voids without difficulty, passing flatus. Lochia is described as minimal. Lower extremity edema is improving. No calf erythema/tenderness. Emotionally, she is doing well and bonding with baby. OB - PN: Obj Exam Physical Exam: Vital signs: Temp Pulse Resp BP Pulse Ox O2 Del Method 98 F 94 20 115/76 95 Room Air 07/03/25 04:45 07/03/25 06:52 07/03/25 06:52 07/03/25 06:52 07/03/25 06:52 07/03/25 06:52 Narrative: General: No acute distress Psych: Alert and oriented x3, full affect Heart: Regular rate and rhythm, no murmur rub or gallop Lungs: Clear to auscultation bilaterally Abdomen: Soft, nondistended. Slight tenderness to palpation in the lower quadrant, consistent with postoperative state. Fundus palpates firm at 1 below umbilicus. Incision is covered by silver dressing. Extremities: 1+ pitting edema bilaterally. No calf erythema or tenderness. OB - PN: Obj Data Labs Labs: Laboratory Results - last 24 hr 07/02/25 07/02/25 07/03/25 12:35 18:48 00:32 WBC 15.72 H 14.92 H 14.64 H RBC 2.76 L 2.76 L 2.63 L Hgb 8.1 L 8.2 L 7.8 L* Hct 24.9 L 24.9 L 23.7 L MCV 90 90 90 MCH 29 30 30 MCHC 33 33 33 Plt Count 239 253 259 BUN 15 14 12 Creatinine 0.8 0.7 0.7 Estimated Creat Clear 84.29 96.33 96.33 Estimated GFR 101 119 119 Magnesium 3.4 H 5.0 H* 5.9 H* AST 69 H 64 H 61 H ALT 30 31 30 07/03/25 07:15 WBC 14.63 H RBC 2.67 L Hgb 7.8 L* Hct 24.0 L MCV 90 MCH 29 MCHC 33 Plt Count 271 BUN Creatinine Estimated Creat Clear Estimated GFR Magnesium AST ALT OB - PN: A/P Delivery Assessment and Plan (1) normal course: Status: Acute (2) Arrest of descent, delivered, current hospitalization: Status: Acute (3) Status post primary low transverse section: Problem details: Female, Emerly, Apgars 8/9, 8#4oz. Status: Acute (4) hemorrhage: Problem details: QBL 1495mL Status: Acute (5) Preeclampsia, severe: Problem details: By Cr and AST Status: Acute (6) Factor 5 Leiden mutation, heterozygous: Status: Acute Plan Shawnee is a 30yo seen on POD3 from primary for arrest of descent complicated by hemorrhage (atony, status post uterotonics and Bakri). has otherwise been complicated by gestational hypertension, where on POD2 she was diagnosed with preeclampsia with severe features (severe range transaminitis, COREEN with Cr of 1.1 on POD1). Patient has had acute blood loss anemia in the postoperative phase, asymptomatic with reassuring vital signs. PreE with SF: - 24 hours of magnesium sulfate ending at 0815 this morning - Serial labs demonstrated interval improvement in AST elevation, Cr, Plt and ALT remained within normal limits. Repeat preE labs as clinically indicated. - Diligent blood pressure monitoring ongoing. Patient has been normotensive with no medications in the last 24 hours. - Strict I&O assessment Acute blood loss anemia: - Hemoglobin has been stable from 7-8 to 8.1 on serial labs in the last 24 hours. Patient is feeling well, hemodynamically stable. She is meeting all appropriate postoperative milestones and is asymptomatic with no difficulty with ambulation, dizziness/lightheadedness, chest pain or dyspnea. - Continue PO iron supplementation. No indication for transfusion at this time. - Diligent monitoring of VS, lochia and abdominal exam. All reassuring at this time. Factor 5 Leiden heterozygous, no VTE history: - Continue lovenox 40mg daily for VTE ppx, SCDs while in bed - Recommend consideration for continuing this for 6 weeks (minimum 2 weeks) given F5L, obesity and history of C/S - Plan to change her Lovenox dosing to 2100 tonight. 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 Continue routine care and lactating support. Dispo: Discharge to home tomorrow after 24 hours of monitoring post-Magnesium for preE with SF
[2025-07-03 07:47] LABS: Alanine Aminotransferase* 33 U/L (4-35); Aspartate Amino Transferase* 66 U/L (12-35); Blood Urea Nitrogen* 11 mg/dL (5-24); Creatinine* 0.7 mg/dL (0.5-1.5); Est. Creatinine Clearance* 96.33; Estimated Glomerular Filt Rate 119 ml/min
[2025-07-03] MEDS: FERROUS SULFATE 325 MG TABLET PO (09:42)
[2025-07-03] MEDS: CETIRIZINE HCL 10 MG TABLET PO (09:42)
[2025-07-03] MEDS: SERTRALINE 50 MG TABLET PO (09:42)
[2025-07-03] MEDS: ACETAMINOPHEN 500 MG TABLET 1000 MG PO ×2 (13:10→20:12)
[2025-07-04 00:30] VITALS: BP 120/75; PULSE 84; RESP 20; TEMP 36.6; O2SAT 97
[2025-07-04] MEDS: IBUPROFEN 600 MG TABLET PO ×2 (00:51→08:41)
[2025-07-04] MEDS: ACETAMINOPHEN 500 MG TABLET 1000 MG PO (04:09)
[2025-07-04 04:23] VITALS: BP 132/84; PULSE 80; RESP 20; TEMP 36.7; O2SAT 97
--- NOTE | 2025-07-04 08:15 | P.DS_ITS ---
DS: Providers Provider Time Seen by Provider: 08:17 Date Seen: 07/04/25 Date of admission: 06/29/25 12:24 Primary care physician: Marisa Mitchell MD Admitting Clinician: Krystal Kern MD Attending Physician on discharge: Krystal Kern MD Date of Discharge: 07/04/25 DS: Diagnosis Discharge Diagnosis (1) Preeclampsia, severe: Status: Acute Problem details: By Cr and AST (2) hemorrhage: Status: Acute Problem details: QBL 1495mL (3) normal course: Status: Acute (4) Status post primary low transverse section: Status: Acute Problem details: Female, Emerly, Apgars 8/9, 8#4oz. (5) Arrest of descent, delivered, current hospitalization: Status: Acute (6) Factor 5 Leiden mutation, heterozygous: Status: Acute (7) Acute blood loss anemia: Status: Acute Problem details: D/c on PO iron Exam Narrative: Exam Narrative: Physical exam: General: No acute distress Psych: Alert and oriented x4, full affect HEENT: Normocephalic, atraumatic Neck: No cervical adenopathy, no thyromegaly Heart: Regular rate and rhythm, no murmur rub or gallop Lungs: Clear to auscultation bilaterally Abdomen: Normoactive bowel sounds, soft, no tenderness, rebound, or guarding Incision(s): Appropriately tender to palpation. Silver dressing Clean, dry, and intact. No surrounding erythema, induration, or abnormal discharge/breakdown Lower extremities: 1+ bilateral lower extremity edema Pelvic exam: No blood on pad Const: Vital Signs, click to edit/add: Vital Signs - 24 hr 07/03/25 08:22 07/03/25 13:06 07/03/25 16:24 Temperature 98.2 F 98.0 F 98.2 F Pulse Rate [Pulse Oximeter] 91 90 91 Respiratory Rate 16 16 16 Blood Pressure [Ri ght Arm] 130/84 122/86 121/81 Pulse Oximetry 96 97 97 Oxygen Delivery Me thod Room Air Room Air Room Air 07/03/25 20:30 07/04/25 00:30 07/04/25 04:23 Temperature 98.2 F 98 F 98.1 F Pulse Rate [Pulse Oximeter] 87 84 80 Respiratory Rate 20 20 20 Blood Pressure [Ri ght Arm] 133/83 120/75 132/84 Pulse Oximetry 98 97 97 Oxygen Delivery Me thod Room Air Room Air Room Air OB - DS: Summary Hospital Course Hospital Course: The patient is a 30 year old POD#4 from primary delivery. She was admitted at 40.5 days for IOL on 06/29/25. Her delivery was for arrest of descent. Delivery was complicated by hemorrhage (atony, status post uterotonics and Bakri). has otherwise been complicated by gestational hypertension. She was subsequently diagnosed with severe features based on transaminitis and elevated creatinine. Received 24 hours of magnesium sulfate. Blood pressures have been within normal limits. She has not needed p.o. antihypertensive. Cr normalized to 0.7 mg/dL and AST downtrended to 66 U/L. She is anemic from acute blood loss anemia to hemoglobin of 7.8 gm/dL. This has been stable via serial labs. She has been asymptomatic the entire hospitalization. Will be discharged on oral iron. She delivered a viable female . She is . the patient has done well. Peripartum Data Procedures: Procedures Operation Date: 06/30/25 16:45 Actual Procedure Side Surgeon p Primary Low Transverse Section Not Applicable Krystal Kern MD [place] Infant Gender: Female Time Spent with Patient Time attestation: Total time spent providing and/or coordinating discharge services: Discharge Plan Discharge Disposition: Home, Self-Care Date of Admission: 06/29/25 12:24 Attending Provider on Discharge: Ema Alvarenga Consulting Providers: Marisa Mitchell Primary Care Provider: Marisa Mitchell Condition: Stable Anticipated Discharge Date/Time: 07/04/25 09:03 Discharge Medications: New acetaminophen 500 mg Tablet 1,000 mg PO Q6H PRN (Reason: pain/fever) 30 Days Qty: 60 0RF ferrous sulfate 325 mg (65 mg iron) Tablet 325 mg PO Q48H 30 Days Qty: 15 0RF docusate sodium 100 mg Capsule 100 mg PO BID PRN (Reason: constipation) 30 Days Qty: 60 0RF ibuprofen 600 mg Tablet 600 mg PO Q6H PRN (Reason: Pain) 30 Days Qty: 60 0RF Lanolin (HPA) 100 % Cream 1 applic topical Q1H PRNQty: 21 0RF simethicone 80 mg Tablet,Chewable 80 - 160 mg PO Q4H PRN (Reason: Gas) 30 Days Qty: 30 0RF oxycodone 5 mg Tablet 5 mg PO Q6H PRN (Reason: Pain) 14 Days Qty: 15 0RF calcium carbonate 200 mg calcium (500 mg) Tablet,Chewable 1,000 - 2,000 mg PO Q2H PRNQty: 30 0RF acetaminophen [Acetaminophen Extra Strength] 500 mg tablet 1,000 mg PO Q6H PRNQty: 60 0RF ibuprofen 600 mg tablet 600 mg PO Q6H PRNQty: 60 0RF docusate sodium 100 mg tablet 100 mg PO BID Qty: 30 0RF oxycodone 5 mg tablet 5 mg PO Q6H PRN (Reason: pain) 14 Days Qty: 15 0RF lanolin Cream 1 applic topical 4-6XD PRN (Reason: skin irritation) Qty: 59 0RF ferrous sulfate 325 mg (65 mg iron) tablet 325 mg PO QMWF 30 Days Qty: 13 0RF simethicone [Gas Relief 80 (simethicone)] 80 mg tablet,chewable 80 mg PO 4-6XD PRN (Reason: abdominal distention) Qty: 30 0RF Continued sertraline 50 mg tablet 50 mg PO DAILY dextroamphetamine-amphetamine 25 mg capsule,extended release 24hr 1 cap PO QAM cetirizine [24Hour Allergy] 10 mg tablet 10 mg PO DAILY PRN PNV no.95-ferrous fumarate-FA [] 28 mg iron- 800 mcg tablet 1 tab PO DAILY Discharge Orders: Discharge Order (Routine); Ordered 07/04/25 Ordered By: Ema Alvarenga Patient Education: OB High Blood Pressure DC, OB /Breast Feeding Follow Up Appointments: Marisa Mitchell MD [Primary Care Provider, Family Practice] Forms: [facility] Info Instructions Discharge Comments: - QD blood pressure log monitoring - Follow up 3-5 days after discharge for incision and blood pressure check with [facility] - Follow up [address] Mitchell - Follow up [address] Mitchell
[2025-07-04 08:40] VITALS: BP 135/86; PULSE 86; RESP 14; TEMP 36.8; O2SAT 97
[2025-07-04] MEDS: CETIRIZINE HCL 10 MG TABLET PO (08:41)
[2025-07-04] MEDS: FERROUS SULFATE 325 MG TABLET PO (08:42)
[2025-07-04] MEDS: SERTRALINE 50 MG TABLET PO (08:42)
== END 2025-07-04 11:53 | disposition home or self-care (01) | DRG 787 ==
PROVIDERS: Obstetrics & Gynecology; Admitting Provider Obstetrics & Gynecology; PCP Family Medicine; Visit Provider Obstetrics & Gynecology
PROC: 10D00Z1 Extraction of Products of Conception, Low, Open Approach (ICD-10-PCS; CPT 59514; principal; 2025-06-30 16:45)
DX: O48.0 Post-term pregnancy (principal); D62 Acute posthemorrhagic anemia; O72.1 Other immediate postpartum hemorrhage; O99.12 Other diseases of the blood and blood-forming organs and certain disorders involving the immune mechanism complicating childbirth; D68.51 Activated protein C resistance; O14.15 Severe pre-eclampsia, complicating the puerperium; O32.4XX0 Maternal care for high head at term, not applicable or unspecified; O76 Abnormality in fetal heart rate and rhythm complicating labor and delivery; O90.81 Anemia of the puerperium; G89.18 Other acute postprocedural pain; O99.824 Streptococcus B carrier state complicating childbirth; O13.4 Gestational [pregnancy-induced] hypertension without significant proteinuria, complicating childbirth; Z37.0 Single live birth; Z3A.40 40 weeks gestation of pregnancy
CPT/HCPCS: 01967; 01968; 36415; 59200; 64488; 76942; 82565; 82570; 83735; 84156; 84450; 84460; 84520; 85025; 85027; 86592; 86850; 86900; 86901; 99140; A9270; J0456; J0665; J0666; J0690; J1100; J1650; J1885; J2210; J2270; J2371; J2405; J2590; J2795; J3010; J3475; J7050; J7120

== ENCOUNTER 2025-07-08 12:52 | Outpatient (CLI) | payer OTHER, SELFPAY | END 2025-07-08 12:53 | disposition home or self-care (01) | PROVIDERS: PCP Family Medicine; Visit Provider Obstetrics & Gynecology | DX: Z39.2 Encounter for routine postpartum follow-up (principal); D62 Acute posthemorrhagic anemia; D68.51 Activated protein C resistance | CPT/HCPCS: 82565; 84450; 84460; 84520; 84550 ==

== ENCOUNTER 2025-07-08 14:07 | Outpatient (CLI) | payer OTHER, SELFPAY ==
--- NOTE | 2025-07-08 15:53 | W.PM.LAC.MC ---
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 Information Delivery type: Primary C/S; Labored Gestational Age: 40+6 Gestational Weight For Age: AGA Weight: 3.75 kg Discharge Weight: 3.394 kg Percentage weight loss: 9.5 Baby's Information Baby's Age at Visit: 8 days Baby's Provider or Clinic: [facility] Jaundice: No Past Experience Past Experience: No Current Frequency of Day Feedings: not at the moment Goals: not sure Pumping Pumping: Yes Quantity Pumped: 1-2 oz every 3-4 hours using [employer] pump Supplementing EBM Supplement: Yes Formula Supplement: Yes Baby Elimination Number of Wet Diapers a Day: ea feeding Number of BM a Day: 2-3x/day Breast/Nipple Condition Breast Information: Breasts are symmetrical with rounded lower quadrants, intramammary distance is less than 1.5 inches. No erythema. Nipples are supple, everted prior to feeding. Breast Shape: Round Engorgement: No Maternal Nipple Condition - Left: Common Nipple Maternal Nipple Condition - Right: Common Nipple Sore Nipples: Yes (within first few days; hasn't BF in 4 days now due to pain) Baby Assessment Skin: Normal Tongue/frenulum: Normal/elastic Palate: Average Lips: Relaxed and Symmetrical Jaw Alignment: Symmetrical Mucosa: [place], moist Onsite Observation Pre-Feed weight: 3.558 kg Post-Feed weight: 3.574 kg Milk Transferred (mL): 16 Position: Cross cradle (on LEFT side) and Football (on RIGHT side) Attachment/latch-on achieved: Easily Suck pattern: Suck burst and normal rest Swallow: Occasionally Behavior following feed: Alert, fussy Pre-Nursing Left Nipple: Within Normal Limits Pre-Nursing Right Nipple: Within Normal Limits Post-Nursing Left Nipple: Within Normal Limits Post-Nursing Right Nipple: Within Normal Limits Assessments/Interventions Assessments/Interventions: Mom tried nursing in the hospital but found it painful and tired a combination of feeding options: cup feeding, finger feeding and bottle feeding. Yoan has not latched to her breast in 4 days. Mom is pumping every 3-4 hours and getting 1-2 oz total; she knows this isn't enough total volume to feed the baby. Yoan latched to mom's RIGHT breast, latched well and deep and stayed nursing for 10 minutes. Transferred 12 ml of milk Yoan then latched to mom's LEFT breast, latched easily again and nursed for another 10 minutes. Transferred 4 ml of milk. Total milk transferred: 16 ml Yoan needed gentle support to stay latched. Mom reported this latch was very comfortable and if this is how it can feel she would like to breastfeed more. Yoan then took 1 oz of formula and was content Education provided: Early feeding cues to maximize timing of latching, Asymmetric latch technique for wide/deep latch to increase milk, Transfer for baby and increase comfort for mom, Supply/demand nature of milk supply, Need for frequent stimulation/milk removal (BF or pump every 3 hrs to build/maintain supply), Alternative feeding methods (SNS, cup, finger feeding, bottling) (paced bottle feeding discussed), Pumping for milk management (need for pumping every 3 if not feeding at the breast to build supply) and Milk collection, storage Feeding Plan: Baby needs to feed every 2-3 hours Feed at the breast as much as possible, 10 min on ea side, more if hearing swallows Mom to pump after as many feeds as she can to stimulate breast tissue to make milk after a period of less breast stimulation while trying to decide what to do for feedings. Will offer supplement of EBM and formula to meet baby's needs. Discussed with mom risk factors for compromised milk supply: , hemorrhage and infrequent stimulation. Mom would like to try and gain a milk supply Follow-Up Suggested follow up: Appointment in 1 week Time Spent Time spent with patient (min): 75 Meds Home Medications and Allergies Home Medications ?Medication ?Instructions ?Recorded ?Confirmed ?Type cetirizine 10 mg tablet (24Hour 10 mg PO DAILY PRN 06/29/25 06/29/25 History Allergy) dextroamphetamine-amphetamine ER 1 cap PO QAM 06/29/25 06/29/25 History 25 mg 24hr capsule,extend release vit no.95-ferrous 1 tab PO DAILY 06/29/25 06/29/25 History fumarate 28 mg-folic acid 800 mcg tablet () sertraline 50 mg tablet 50 mg PO DAILY 06/29/25 06/29/25 History acetaminophen 500 mg tablet 1,000 mg (2 x 500 mg) PO Q6H PRN 07/04/25 Rx pain/fever 30 days #60 tabs acetaminophen 500 mg tablet 1,000 mg (2 x 500 mg) PO Q6H PRN 07/04/25 Rx (Acetaminophen Extra Strength) #60 tabs calcium carbonate 1,000 - 2,000 mg (5 - 10 x 200 mg 07/04/25 Rx calcium (500 mg)) PO Q2H PRN #30 tabs docusate sodium 100 mg capsule 100 mg PO BID PRN constipation 30 07/04/25 Rx days #60 caps docusate sodium 100 mg tablet 100 mg PO BID #30 tabs 07/04/25 Rx enoxaparin 40 mg/0.4 mL 40 mg (0.4 mL) subcut Q24H 42 days 07/04/25 Rx subcutaneous syringe (Lovenox) #16.8 mL ferrous sulfate 325 mg (65 mg 325 mg PO Q48H 30 days #15 tabs 07/04/25 Rx iron) tablet ferrous sulfate 325 mg (65 mg 325 mg PO QMWF 30 days #13 tabs 07/04/25 Rx iron) tablet ibuprofen 600 mg tablet 600 mg PO Q6H PRN #60 tabs 07/04/25 Rx ibuprofen 600 mg tablet 600 mg PO Q6H PRN Pain 30 days #60 07/04/25 Rx tabs lanolin 1 applic topical 4-6XD PRN skin 07/04/25 Rx irritation #59 mL modified lanolin 100 % topical 1 applic topical Q1H PRN #21 grams 07/04/25 Rx cream (Lanolin (HPA)) oxycodone 5 mg tablet 5 mg PO Q6H PRN Pain 14 days #15 07/04/25 Rx tabs oxycodone 5 mg tablet 5 mg PO Q6H PRN pain 14 days #15 07/04/25 Rx tabs simethicone 80 mg chewable tablet 80 - 160 mg (1 - 2 x 80 mg) PO Q4H 07/04/25 Rx PRN Gas 30 days #30 tabs simethicone 80 mg chewable tablet 80 mg PO 4-6XD PRN abdominal 07/04/25 Rx (Gas Relief 80 (simethicone)) distention #30 tabs nifedipine 30 mg tablet,extended 30 mg PO QDAY #60 tabs 07/08/25 Rx release Allergies Allergy/AdvReac Type Severity Reaction Status Date / Time amoxicillin Allergy Verified 06/30/25 17:28
== END 2025-07-08 14:08 | disposition home or self-care (01) ==
LOC: OB LAC 14:09
PROVIDERS: PCP Family Medicine; Visit Provider Family Medicine
DX: Z39.1 Encounter for care and examination of lactating mother (principal)
CPT/HCPCS: G0463